=== PATIENT | female | born 1960 | race Caucasian/White ===

== ENCOUNTER 2020-12-19 23:19 | Emergency (ER) | payer BC, OTHER ==
[2020-12-19 23:28] VITALS: BP 139/97; PULSE 79; TEMP 97.9; BMI 32.4
== END 2020-12-20 00:17 | disposition home or self-care (01) ==
LOC: FER 23:19
DX: S43.411A Sprain of right coracohumeral (ligament), initial encounter (principal)
CPT/HCPCS: 73030-TC-RT-FY; 99283-25